=== PATIENT | male | born 1995 | race American Indian/Alaskan Native ===

== ENCOUNTER 2019-04-16 20:04 | Emergency (ER) | payer OTHER ==
[2019-04-16 20:14] VITALS: BP 138/81
--- NOTE | 2019-04-16 20:51 | XRay Report ---
LEFT ANKLE 3 VIEWS INDICATION / CLINICAL INFORMATION: Fell off the porch today with left ankle pain and swelling. COMPARISON: None available. FINDINGS: BONES / JOINT(S): There is mild spurring/heterotopic ossification along the medial margin of the medi al malleolus. The joint spaces are normal. There is no evidence of fracture or dislocation. SOFT TISSUES: There is mild soft tissue swelling overlying the lateral malleolus. ADDITIONAL FINDINGS: None. IMPRESSION: No evidence of acute osseous abnormality. Signer Name: Phil Singh MD Signed: 04/16/2019 7:46 PM Workstation Name: [id number]
[2019-04-16] MEDS ORDERED: NORCO PO ONE (22:36)
[2019-04-16] MEDS: FLEXERIL PO ONE ×2 (22:46→23:01)
[2019-04-16] MEDS: IBUPROFEN PO ONE ×2 (22:46→23:01)
--- NOTE | 2019-04-16 23:04 | Emergency Department Report ---
ED Lower Extremity HPI - General Chief Complaint: Extremity Injury, Lower Stated Complaint: LT ANKLE PAIN Time Seen by Provider: 04/16/19 22:30 Source: patient Mode of arrival: Wheelchair Limitations: Physical Limitation - History of Present Illness Initial Comments: Patient is a 24-year-old male with no past medical history presents to the ED with complaint of acute onset persistent severe left ankle pain and swelling after he slipped and fell off the porch and landed on the left foot and twisted his left ankle about 3 hours ago. Patient states that he is unable to bear weight on his left ankle because of severe pain. Patient denies head or neck injuries, no back pain, knee pain, numbness and tingling or weakness of the left leg, dizziness, syncope, chest pain, shortness of breath, or hip pain. MD Complaint: ankle injury (left ankle) -: Sudden, hour(s) (3), This evening Injury: Ankle: Left (painful swollen) Type of Injury: inversion Place: home Severity: severe Severity scale (0 -10): 8 Improves With: nothing Worsens With: weight bearing, movement, palpation Context: fall Associated Symptoms: snap/pop sensation, swelling, able to partially bear weight. denies: numbness, tingling, ambulatory Treatments Prior to Arrival: cold therapy - Related Data Previous Rx's Medication Instructions Recorded Last Taken Type Ibuprofen [Motrin] 800 mg PO Q8HR PRN #24 tablet 04/16/19 Unknown Rx tiZANidine [Zanaflex 4mg TAB] 4 mg PO Q8H PRN #21 tablet 04/16/19 Unknown Rx traMADol [Ultram] 50 mg PO Q6HR PRN #15 tablet 04/16/19 Unknown Rx Allergies Allergy/AdvReac Type Severity Reaction Status Date / Time No Known Allergies Allergy Verified 04/16/19 20:09 ED Review of Systems ROS: Stated complaint: LT ANKLE PAIN Other details as noted in HPI Comment: All other systems reviewed and negative Constitutional: denies: chills, fever Eyes: denies: eye pain, eye discharge, vision change ENT: denies: ear pain, throat pain Respiratory: denies: cough, shortness of breath, wheezing Cardiovascular: denies: chest pain, palpitations Endocrine: no symptoms reported Gastrointestinal: denies: abdominal pain, nausea, diarrhea Genitourinary: denies: urgency, dysuria Musculoskeletal: joint swelling (left ankle pain and swelling), arthralgia, other (Left ankle pain and swelling). denies: back pain Skin: denies: rash, lesions Neurological: denies: headache, weakness, paresthesias Psychiatric: denies: anxiety, depression Hematological/Lymphatic: denies: easy bleeding, easy bruising ED Past Medical Hx - Past Medical History Previous Medical History?: No - Surgical History Past Surgical History?: Yes - Social History Smoking Status: Never Smoker Substance Use Type: Marijuana - Medications Home Medications: Home Medications Medication Instructions Recorded Confirmed Last Taken Type Ibuprofen [Motrin] 800 mg PO Q8HR PRN #24 tablet 04/16/19 Unknown Rx tiZANidine [Zanaflex 4mg TAB] 4 mg PO Q8H PRN #21 tablet 04/16/19 Unknown Rx traMADol [Ultram] 50 mg PO Q6HR PRN #15 tablet 04/16/19 Unknown Rx ED Physical Exam - General Limitations: Physical Limitation General appearance: alert, in no apparent distress - Head Head exam: Present: atraumatic, normocephalic, normal inspection - Eye Eye exam: Present: normal appearance, PERRL, EOMI - ENT ENT exam: Present: normal exam, normal orophraynx, mucous membranes moist, TM's normal bilaterally, normal external ear exam - Neck Neck exam: Present: normal inspection, full ROM. Absent: tenderness - Respiratory Respiratory exam: Present: normal lung sounds bilaterally. Absent: respiratory distress, wheezes, rales, stridor, chest wall tenderness, accessory muscle use, prolonged expiratory - Cardiovascular Cardiovascular Exam: Present: regular rate, normal rhythm, normal heart sounds. Absent: systolic murmur, diastolic murmur, rubs, gallop - GI/Abdominal GI/Abdominal exam: Present: soft, normal bowel sounds. Absent: tenderness, hyperactive bowel sounds, hypoactive bowel sounds - Rectal Rectal exam: Present: deferred - Extremities Exam Extremities exam: Present: normal inspection, tenderness (palpable left ankle tenderness with limited ROM due to pain), normal capillary refill, joint swelling (left ankle swelling). Absent: full ROM - Back Exam Back exam: Present: normal inspection, full ROM. Absent: tenderness, CVA tenderness (L), muscle spasm, paraspinal tenderness, vertebral tenderness - Neurological Exam Neurological exam: Present: alert, oriented X3, CN II-XII intact, normal gait, reflexes normal - Psychiatric Psychiatric exam: Present: normal affect, normal mood - Skin Skin exam: Present: warm, dry, intact, normal color. Absent: rash ED Course Vital Signs 04/16/19 20:14 Temperature 98.0 F Pulse Rate 86 Respiratory 18 Rate Blood Pressure 138/81 [Right] O2 Sat by Pulse 98 Oximetry - Reevaluation(s) Reevaluation #1: 04/16/19 23:09 Patient is alert and oriented 3 and is not in distress with normal vital signs. Patient was treated for pain in the ED and left ankle x-ray shows no acute fractures or subluxations but soft tissue swelling on the left lateral malleolus. Patient's left ankle was splinted CORNELIUS and patient fitted with crutches, and patient discharged home on pain medications and muscle relaxants and advised to follow up with his primary care physician in 7-10 days for reevaluation. Patient was advised to return to the ED immediately if symptoms get worse. ED Lower Extremity MDM - Radiology Data Radiology results: report reviewed, image reviewed Left ankle x-ray: No acute fractures or subluxations but soft tissue swelling on lateral malleolus - Medical Decision Making Patient is alert and oriented 3 and is not in distress with normal vital signs. Patient was treated for pain in the ED and left ankle x-ray shows no acute fractures or subluxations but soft tissue swelling on the left lateral malleolus. Patient's left ankle was splinted CORNELIUS and patient fitted with crutches, and patient discharged home on pain medications and muscle relaxants and advised to follow up with his primary care physician in 7-10 days for reevaluation. Patient was advised to return to the ED immediately if symptoms get worse - Differential Diagnosis Left ankle fracture; left ankle sprain; left ankle muscle strain Critical care attestation.: If time is entered above; I have spent that time in minutes in the direct care of this critically ill patient, excluding procedure time. ED Disposition Clinical Impression: Severe sprain of left ankle Qualifiers: Encounter type: initial encounter Qualified Code(s): S93.402A - Sprain of unspecified ligament of left ankle, initial encounter Sprain of left foot Qualifiers: Encounter type: initial encounter Qualified Code(s): S93.602A - Unspecified spr ain of left foot, initial encounter Disposition: DC-01 TO HOME OR SELFCARE Is pt being admited?: No Does the pt Need Aspirin: No Condition: Stable Instructions: Ankle Sprain (ED), Muscle Strain (ED), Musculoskeletal Pain (ED) Additional Instructions: Take medications at home, drink plenty of fluids and follow up with your primary care physician in 7-10 days for reevaluation. Return to the ED immediately if symptoms get worse. Prescriptions: Ibuprofen [Motrin] 800 mg PO Q8HR PRN #24 tablet PRN Reason: Pain , Severe (7-10) traMADol [Ultram] 50 mg PO Q6HR PRN #15 tablet PRN Reason: Pain tiZANidine [Zanaflex 4mg TAB] 4 mg PO Q8H PRN #21 tablet PRN Reason: Spasms Referrals: [facility] [Outside] - 3-5 Days Forms: Work/School Release Form(ED) Time of Disposition: 23:04 Print Language: KYRGYZ
== END 2019-04-17 00:10 | disposition home or self-care (01) ==
LOC: ED 20:04
DX: S93.402A Sprain of unspecified ligament of left ankle, initial encounter (principal); F12.10 Cannabis abuse, uncomplicated; Z79.1 Long term (current) use of non-steroidal anti-inflammatories (NSAID); W01.198A Fall on same level from slipping, tripping and stumbling with subsequent striking against other object, initial encounter; Y93.89 Activity, other specified; Y92.098 Other place in other non-institutional residence as the place of occurrence of the external cause; Y99.8 Other external cause status

== ENCOUNTER 2019-08-24 19:30 | Emergency (ER) | payer OTHER ==
[2019-08-24] MEDS ORDERED: IBUPROFEN 600 MG TAB PO ONE (20:58)
[2019-08-24] MEDS ORDERED: ACETAMINOPHEN 500 MG TAB PO ONE (20:58)
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
[2019-08-25 02:07] VITALS: BP 124/78
== END 2019-08-25 02:25 | disposition home or self-care (01) ==
LOC: ED 19:30
DX: M62.838 Other muscle spasm (principal); M62.830 Muscle spasm of back; G44.319 Acute post-traumatic headache, not intractable; Z98.890 Other specified postprocedural states; Z79.1 Long term (current) use of non-steroidal anti-inflammatories (NSAID); Z79.899 Other long term (current) drug therapy; V49.49XA Driver injured in collision with other motor vehicles in traffic accident, initial encounter; Y93.89 Activity, other specified; Y92.410 Unspecified street and highway as the place of occurrence of the external cause; Y99.8 Other external cause status
CPT/HCPCS: 70450; 72125; 72131